=== PATIENT | female | born 1990 | race African-American/Black ===

== ENCOUNTER 2018-08-17 16:36 | Emergency (ER) | payer MEDICAID ==
[~2018-08-17] VITALS: Ht 167.6 cm; Wt 86.4 kg
[~2018-08-17 16:36] MED LIST: PAIN MEDS
[2018-08-17] MEDS ORDERED: IBUPROFEN 800 MG TABLET PO ONE (17:00)
[2018-08-17 17:19] VITALS: BP 108/64
== END 2018-08-17 19:40 | disposition left against medical advice (07) ==
LOC: EMS 16:37
DX: S83.91XA Sprain of unspecified site of right knee, initial encounter (principal); W17.89XA Other fall from one level to another, initial encounter; Y93.39 Activity, other involving climbing, rappelling and jumping off; Y92.89 Other specified places as the place of occurrence of the external cause; Y99.8 Other external cause status